=== PATIENT | male | born 1965 | race Caucasian/White ===

== ENCOUNTER 2017-06-02 08:58 | Emergency (ER) | payer MEDICAID ==
[~2017-06-02] VITALS: Ht 172.7 cm; Wt 80.0 kg
[2017-06-02] MEDS ORDERED: ONDANSETRON 2MG/ML, 2ML ONE (09:16)
[2017-06-02] MEDS ORDERED: FAMOTIDINE 20 MG/2 ML ONE (09:16)
[2017-06-02] MEDS ORDERED: MAALOX/HYOSCYAMINE/LIDOCAINE 45 ML BTL ONE (09:16)
[2017-06-02] MEDS ORDERED: MORPHINE SULFATE 4 MG/ML, 1ML ONE (09:18)
[2017-06-02] MEDS ORDERED: MORPHINE SULFATE 4 MG/ML, 1ML IVPush PRN (09:30)
[2017-06-02] MEDS ORDERED: MAALOX/HYOSCYAMINE/LIDOCAINE 45 ML BTL PO ONE (09:30)
[2017-06-02] MEDS ORDERED: FAMOTIDINE 20 MG/2 ML IVP ONE (09:30)
[2017-06-02] MEDS ORDERED: ONDANSETRON 2MG/ML, 2ML IVPush ONE (09:30)
[2017-06-02 09:36] LABS: HEMATOCRIT 53.5 % (39.2-51.8); HEMOGLOBIN 18.1 g/dL (13.7-18.0); WHITE BLOOD COUNT 13.8 x10^3/uL (3.4-10)
[2017-06-02 09:47] LABS: ASPARTATE AMINO TRANSFERASE 28 U/L (15-37); BLOOD UREA NITROGEN 11 mg/dL (7-18)
[2017-06-02] MEDS ORDERED: OMNIPAQUE 350 MG/ML, 100ML BOTTLE ONE (10:43)
[2017-06-02] MEDS ORDERED: HYDROcodone/APAP 5/325 TABLET PO ONE (11:30)
[2017-06-02] MEDS ORDERED: HYDROcodone/APAP 5/325 TABLET ONE (12:08)
[2017-06-02 12:16] VITALS: BP 170/104
== END 2017-06-02 12:18 | disposition home or self-care (01) ==
LOC: ED 09:20
DX: K29.00 Acute gastritis without bleeding (principal); I10 Essential (primary) hypertension
CPT/HCPCS: 36415; 74177; 80053; 83690; 85025; 96374; 96375; 99285; J2405; Q9967; S0028

== ENCOUNTER 2017-06-14 23:32 | Emergency (ER) | payer MEDICAID ==
[~2017-06-14] VITALS: Ht 172.7 cm; Wt 80.0 kg
[2017-06-14] MEDS ORDERED: OMEP20TA62 PO (23:44)
[2017-06-14] MEDS ORDERED: FAMOTIDINE 20 MG/2 ML ONE (23:55)
[2017-06-14] MEDS ORDERED: MAALOX/HYOSCYAMINE/LIDOCAINE 45 ML BTL ONE (23:55)
[2017-06-14 23:59] LABS: HEMOGLOBIN 17.8 g/dL (13.7-18.0); WHITE BLOOD COUNT 13.2 x10^3/uL (3.4-10)
[2017-06-15] MEDS ORDERED: SODIUM CHLORIDE FLUSH 10ML SYR IVF ONE
[2017-06-15] MEDS ORDERED: MAALOX/HYOSCYAMINE/LIDOCAINE 45 ML BTL PO ONE
[2017-06-15] MEDS ORDERED: SODIUM CHLORIDE 0.9% 1,000ML IVBOLUS ONE
[2017-06-15] MEDS ORDERED: FAMOTIDINE 20 MG/2 ML IVP ONE
[2017-06-15 00:13] LABS: ASPARTATE AMINO TRANSFERASE 25 U/L (15-37); BLOOD UREA NITROGEN 11 mg/dL (7-18)
[2017-06-15] MEDS ORDERED: morphine SULFATE 10 MG/ML, 1ML ONE ×2 (00:22→00:59)
[2017-06-15] MEDS: MORPHINE SULFATE 4 MG/ML, 1ML IVPush PRN ×2 (00:25→01:02)
[2017-06-15 00:32] LABS: PATH.CAST-FLAG NOT PRESENT; SPERM-FLAG NOT PRESENT; SRC-FLAG NOT PRESENT; XTAL-FLAG NOT PRESENT; YLC-FLAG NOT PRESENT
[2017-06-15 01:29] VITALS: BP 156/98
== END 2017-06-15 01:30 | disposition home or self-care (01) ==
LOC: ED 23:39
DX: K29.00 Acute gastritis without bleeding (principal); D72.829 Elevated white blood cell count, unspecified; I10 Essential (primary) hypertension; Z90.49 Acquired absence of other specified parts of digestive tract
CPT/HCPCS: 36415; 76700; 80053; 81003; 83690; 85025; 93005; 96361; 96374; 96375; 96376; 99285; J7030; S0028

== ENCOUNTER 2017-07-01 03:56 | Emergency (ER) | payer MEDICAID ==
[~2017-07-01] VITALS: Ht 170.2 cm; Wt 73.0 kg
[~2017-07-01 03:56] MED LIST: OMEP20TA62 PO
[2017-07-01] MEDS ORDERED: MAALOX/HYOSCYAMINE/LIDOCAINE 45 ML BTL ONE (04:11)
[2017-07-01 04:24] LABS: HEMATOCRIT 49.2 % (39.2-51.8); HEMOGLOBIN 16.8 g/dL (13.7-18.0); WHITE BLOOD COUNT 11.4 x10^3/uL (3.4-10)
[2017-07-01] MEDS ORDERED: MAALOX/HYOSCYAMINE/LIDOCAINE 45 ML BTL PO ONE (04:30)
[2017-07-01] MEDS ORDERED: ONDANSETRON ODT 4 MG PO ONE (04:30)
[2017-07-01 04:37] LABS: ASPARTATE AMINO TRANSFERASE 27 U/L (15-37); BLOOD UREA NITROGEN 20 mg/dL (7-18)
[2017-07-01 04:53] LABS: IS PT STATUS REG ER OR PRE ER? YES
[2017-07-01 05:09] VITALS: BP 163/62
== END 2017-07-01 05:14 | disposition home or self-care (01) ==
LOC: ED 05:00
DX: K21.0 Gastro-esophageal reflux disease with esophagitis (principal); I10 Essential (primary) hypertension; F17.200 Nicotine dependence, unspecified, uncomplicated
CPT/HCPCS: 36415; 80053; 80307; 83690; 84484; 85025; 93005; 99285; G0479

== ENCOUNTER 2017-08-05 06:33 | Emergency (ER) | payer MEDICAID ==
[2017-08-05] MEDS ORDERED: FAMOTIDINE 20 MG/2 ML ONE (07:25)
[2017-08-05] MEDS ORDERED: MAALOX/HYOSCYAMINE/LIDOCAINE 45 ML BTL ONE (07:25)
[2017-08-05] MEDS ORDERED: ONDANSETRON 2MG/ML, 2ML ONE (07:25)
[2017-08-05] MEDS ORDERED: ONDANSETRON 2MG/ML, 2ML IVPush ONE (07:30)
[2017-08-05] MEDS ORDERED: FAMOTIDINE 20 MG/2 ML IVP ONE (07:30)
[2017-08-05] MEDS ORDERED: MAALOX/HYOSCYAMINE/LIDOCAINE 45 ML BTL PO ONE (07:30)
[2017-08-05] MEDS ORDERED: SODIUM CHLORIDE 0.9% 1,000ML IVBOLUS ONE (07:30)
[2017-08-05 07:37] VITALS: BP 186/143
[2017-08-05 07:45] LABS: HEMATOCRIT 49.7 % (39.2-51.8); WHITE BLOOD COUNT 13.2 x10^3/uL (3.4-10)
[2017-08-05 07:55] LABS: ASPARTATE AMINO TRANSFERASE 26 U/L (15-37); BLOOD UREA NITROGEN 15 mg/dL (7-18)
[2017-08-05] MEDS ORDERED: MORPHINE SULFATE 4 MG/ML, 1ML ONE (08:39)
[2017-08-05] MEDS ORDERED: MORPHINE SULFATE 4 MG/ML, 1ML IVPush PRN (09:00)
== END 2017-08-05 09:39 | disposition home or self-care (01) ==
LOC: ED 07:03
DX: K29.00 Acute gastritis without bleeding (principal); F17.210 Nicotine dependence, cigarettes, uncomplicated; I10 Essential (primary) hypertension
CPT/HCPCS: 36415; 80053; 83690; 85025; 93005; 96361; 96374; 96375; 99285; J2405; J7030; S0028

== ENCOUNTER 2017-08-09 04:14 | Emergency (ER) | payer MEDICAID ==
[~2017-08-09] VITALS: Ht 172.7 cm; Wt 78.7 kg
[2017-08-09] MEDS ORDERED: MAALOX/HYOSCYAMINE/LIDOCAINE 45 ML BTL PO ONE (05:00)
[2017-08-09] MEDS ORDERED: FAMOTIDINE 20 MG/2 ML IVP ONE (05:00)
[2017-08-09] MEDS ORDERED: ONDANSETRON 2MG/ML, 2ML IVPush ONE (05:00)
[2017-08-09] MEDS ORDERED: SODIUM CHLORIDE FLUSH 10ML SYR IVF ONE (05:00)
[2017-08-09] MEDS ORDERED: KETOROLAC 30 MG/1 ML IVPush ONE (05:00)
[2017-08-09] MEDS ORDERED: MAALOX/HYOSCYAMINE/LIDOCAINE 45 ML BTL ONE (05:04)
[2017-08-09] MEDS ORDERED: KETOROLAC 30 MG/1 ML ONE (05:04)
[2017-08-09] MEDS ORDERED: ONDANSETRON 2MG/ML, 2ML ONE (05:04)
[2017-08-09] MEDS ORDERED: FAMOTIDINE 20 MG/2 ML ONE (05:04)
[2017-08-09 05:13] LABS: HEMATOCRIT 48.5 % (39.2-51.8); HEMOGLOBIN 16.4 g/dL (13.7-18.0); WHITE BLOOD COUNT 10.4 x10^3/uL (3.4-10)
[2017-08-09 05:21] LABS: ASPARTATE AMINO TRANSFERASE 34 U/L (15-37); BLOOD UREA NITROGEN 24 mg/dL (7-18)
[2017-08-09 05:53] LABS: IS PT STATUS REG ER OR PRE ER? YES
[2017-08-09 06:21] VITALS: BP 156/96
[2017-08-10] MEDS ORDERED: ONDA4TAB10 PO (02:48)
== END 2017-08-09 06:23 | disposition home or self-care (01) ==
LOC: ED 05:08
DX: K29.00 Acute gastritis without bleeding (principal); K80.50 Calculus of bile duct without cholangitis or cholecystitis without obstruction; I10 Essential (primary) hypertension; F17.210 Nicotine dependence, cigarettes, uncomplicated
CPT/HCPCS: 36415; 71010; 76700; 80053; 83690; 84484; 85025; 93005; 96374; 96375; 99285; J1885; J2405; S0028

== ENCOUNTER 2017-08-10 02:35 | Emergency (ER) | payer MEDICAID ==
[~2017-08-10] VITALS: Ht 172.7 cm; Wt 78.0 kg
[2017-08-10] MEDS ORDERED: ONDA4TAB10 PO (02:48)
[2017-08-10] MEDS ORDERED: SODIUM CHLORIDE 0.9% 1,000ML IVBOLUS ONE (03:30)
[2017-08-10] MEDS ORDERED: ONDANSETRON 2MG/ML, 2ML IVPush ONE (03:30)
[2017-08-10] MEDS ORDERED: MORPHINE SULFATE 4 MG/ML, 1ML ONE ×2 (03:37→04:19)
[2017-08-10] MEDS ORDERED: ONDANSETRON 2MG/ML, 2ML ONE (03:37)
[2017-08-10] MEDS: MORPHINE SULFATE 4 MG/ML, 1ML IVPush PRN ×2 (03:40→04:21)
[2017-08-10 03:52] LABS: HEMATOCRIT 48.4 % (39.2-51.8); HEMOGLOBIN 16.5 g/dL (13.7-18.0); WHITE BLOOD COUNT 9.6 x10^3/uL (3.4-10)
[2017-08-10 04:06] LABS: ASPARTATE AMINO TRANSFERASE 26 U/L (15-37); BLOOD UREA NITROGEN 20 mg/dL (7-18)
[2017-08-10 04:13] LABS: IS PT STATUS REG ER OR PRE ER? YES
[2017-08-10] MEDS ORDERED: OMNIPAQUE 350 MG/ML, 100ML BOTTLE ONE (04:48)
[2017-08-10 06:19] VITALS: BP 133/88
== END 2017-08-10 06:34 | disposition home or self-care (01) ==
LOC: ED 05:55
DX: K29.00 Acute gastritis without bleeding (principal); K80.44 Calculus of bile duct with chronic cholecystitis without obstruction; K21.9 Gastro-esophageal reflux disease without esophagitis; I10 Essential (primary) hypertension; G89.29 Other chronic pain; Z87.19 Personal history of other diseases of the digestive system
CPT/HCPCS: 36415; 74177; 76700; 80053; 80307; 81003; 83690; 84484; 85025; 96361; 96374; 96375; 96376; 99285; J2405; J7030; Q9967; G0479

== ENCOUNTER 2017-08-16 09:36 | Emergency (ER) | payer MEDICAID ==
[~2017-08-16] VITALS: Ht 172.7 cm; Wt 79.0 kg
[~2017-08-16 09:36] MED LIST changes: +ONDA4TAB10 PO
[2017-08-16] MEDS ORDERED: MAALOX/HYOSCYAMINE/LIDOCAINE 45 ML BTL PO ONE (10:00)
[2017-08-16] MEDS ORDERED: SODIUM CHLORIDE 0.9% 1,000ML IVBOLUS ONE (10:00)
[2017-08-16] MEDS ORDERED: SODIUM CHLORIDE FLUSH 10ML SYR IVF ONE (10:00)
[2017-08-16] MEDS ORDERED: ONDANSETRON 2MG/ML, 2ML IVPush ONE (10:00)
[2017-08-16] MEDS ORDERED: FAMOTIDINE 20 MG/2 ML IVP ONE (10:00)
[2017-08-16 10:17] LABS: BASOPHILS # (AUTO) 0.06 x10^3/uL (0-0.1); BASOPHILS % (AUTO) 1 % (0-1); EOSINOPHILS # (AUTO) 0.03 x10^3/uL (0-0.4); EOSINOPHILS % (AUTO) 0 % (1-7); LYMPHOCYTES # (AUTO) 1.21 x10^3/uL (1-3.4); LYMPHOCYTES % (AUTO) 13 % (22-44); MD NO; MEAN CORPUSCULAR HEMOGLOBIN 33.6 pg (27.5-34.5); MEAN CORPUSCULAR HGB CONC 33.5 g/dL (33.2-36.2); MEAN CORPUSCULAR VOLUME 100.2 fL (81-97); MEAN PLATELET VOLUME 8.2 fL (7.4-10.4); MONOCYTES # (AUTO) 0.43 x10^3/uL (0.2-0.8); MONOCYTES % (AUTO) 5 % (2-9); NEUTROPHILS # (AUTO) 7.55 x10^3/uL (1.8-6.8); NEUTROPHILS % (AUTO) 81 % (42-75); PLATELET COUNT 303 x10^3/uL (130-400); RED BLOOD COUNT 5.45 x10^6/uL (4.38-5.82); RED CELL DISTRIBUTION WIDTH 12.9 % (9.4-14.8)
[2017-08-16 10:29] LABS: ALANINE AMINOTRANSFERASE 31 U/L (12-78); ANION GAP 7 mmol/L (5-15); CHLORIDE 105 mmol/L (98-107); CREATININE 1.12 mg/dL (0.7-1.3)
[2017-08-16 10:32] LABS: ALKALINE PHOSPHATASE 92 U/L (45-117); BILIRUBIN,TOTAL 0.4 mg/dL (0.2-1.0); TOTAL PROTEIN 8.4 g/dL (6.4-8.2)
[2017-08-16] MEDS ORDERED: MAALOX/HYOSCYAMINE/LIDOCAINE 45 ML BTL ONE (10:49)
[2017-08-16] MEDS ORDERED: ONDANSETRON 2MG/ML, 2ML ONE (10:49)
[2017-08-16] MEDS ORDERED: FAMOTIDINE 20 MG/2 ML ONE (10:49)
[2017-08-16 11:58] VITALS: BP 130/86
== END 2017-08-16 12:01 | disposition home or self-care (01) ==
LOC: ED 10:01
DX: K29.70 Gastritis, unspecified, without bleeding (principal); K21.9 Gastro-esophageal reflux disease without esophagitis; I10 Essential (primary) hypertension
CPT/HCPCS: 36415; 76700; 80053; 83690; 85025; 96374; 96375; 99285; J2405; S0028

== ENCOUNTER 2017-08-31 01:17 | Emergency (ER) | payer MEDICAID ==
[~2017-08-31] VITALS: Ht 172.7 cm; Wt 76.4 kg
[2017-08-31] MEDS ORDERED: PANTOPRAZOLE 20MG TABLET ONE (01:54)
[2017-08-31] MEDS ORDERED: MAALOX/HYOSCYAMINE/LIDOCAINE 45 ML BTL ONE (01:54)
[2017-08-31] MEDS ORDERED: PANTOPRAZOLE 20MG TABLET PO ONE (02:00)
[2017-08-31] MEDS ORDERED: MAALOX/HYOSCYAMINE/LIDOCAINE 45 ML BTL PO ONE (02:00)
[2017-08-31 02:09] LABS: BASOPHILS # (AUTO) 0.04 x10^3/uL (0-0.1); BASOPHILS % (AUTO) 0 % (0-1); EOSINOPHILS # (AUTO) 0.09 x10^3/uL (0-0.4); EOSINOPHILS % (AUTO) 1 % (1-7); LYMPHOCYTES # (AUTO) 1.86 x10^3/uL (1-3.4); LYMPHOCYTES % (AUTO) 14 % (22-44); MD NO; MEAN CORPUSCULAR HEMOGLOBIN 33.2 pg (27.5-34.5); MEAN CORPUSCULAR HGB CONC 33.5 g/dL (33.2-36.2); MEAN PLATELET VOLUME 8.2 fL (7.4-10.4); MONOCYTES # (AUTO) 0.75 x10^3/uL (0.2-0.8); MONOCYTES % (AUTO) 6 % (2-9); NEUTROPHILS # (AUTO) 10.78 x10^3/uL (1.8-6.8); NEUTROPHILS % (AUTO) 80 % (42-75); PLATELET COUNT 247 x10^3/uL (130-400); RED BLOOD COUNT 5.21 x10^6/uL (4.38-5.82); RED CELL DISTRIBUTION WIDTH 12.7 % (9.4-14.8)
[2017-08-31 02:25] LABS: ALBUMIN 3.4 g/dL (3.4-5.0); ANION GAP 5 mmol/L (5-15); CALCIUM 9.2 mg/dL (8.5-10.1); CHLORIDE 108 mmol/L (98-107)
[2017-08-31 02:31] LABS: ALANINE AMINOTRANSFERASE 35 U/L (12-78); ALKALINE PHOSPHATASE 97 U/L (45-117); BILIRUBIN,TOTAL 0.2 mg/dL (0.2-1.0); CREATININE 1.04 mg/dL (0.7-1.3); TOTAL PROTEIN 7.6 g/dL (6.4-8.2); TROPONIN I < 0.015 ng/mL (0.000-0.045)
[2017-08-31 02:53] VITALS: BP 153/100
== END 2017-08-31 02:56 | disposition home or self-care (01) ==
LOC: ED 01:54
DX: K21.0 Gastro-esophageal reflux disease with esophagitis (principal); G89.29 Other chronic pain; I10 Essential (primary) hypertension; Z60.9 Problem related to social environment, unspecified; Z91.14 Patient's other noncompliance with medication regimen
CPT/HCPCS: 36415; 71045; 80053; 83690; 84484; 85025; 86677; 93005; 99285

== ENCOUNTER 2017-09-02 06:33 | Emergency (ER) | payer MEDICAID ==
[~2017-09-02] VITALS: Ht 172.7 cm; Wt 70.0 kg
[2017-09-02] MEDS ORDERED: HYDROmorphone 2 MG/ML, 1ML ONE (06:58)
[2017-09-02] MEDS ORDERED: MAALOX/HYOSCYAMINE/LIDOCAINE 45 ML BTL ONE (06:58)
[2017-09-02] MEDS ORDERED: MAALOX/HYOSCYAMINE/LIDOCAINE 45 ML BTL PO ONE (07:00)
[2017-09-02] MEDS ORDERED: HYDROmorphone 1 MG/ML, 1ML IM ONE (07:00)
[2017-09-02] MEDS ORDERED: SODIUM CHLORIDE FLUSH 10ML SYR IVF ONE (08:00)
[2017-09-02] MEDS ORDERED: ONDANSETRON 2MG/ML, 2ML IVPush ONE (08:00)
[2017-09-02] MEDS ORDERED: SODIUM CHLORIDE 0.9% 1,000ML IVBOLUS ONE (08:00)
[2017-09-02 08:13] LABS: BASOPHILS # (AUTO) 0.06 x10^3/uL (0-0.1); BASOPHILS % (AUTO) 0 % (0-1); EOSINOPHILS # (AUTO) 0.02 x10^3/uL (0-0.4); EOSINOPHILS % (AUTO) 0 % (1-7); LYMPHOCYTES # (AUTO) 1.46 x10^3/uL (1-3.4); LYMPHOCYTES % (AUTO) 11 % (22-44); MD NO; MEAN CORPUSCULAR HEMOGLOBIN 33.7 pg (27.5-34.5); MEAN CORPUSCULAR HGB CONC 33.6 g/dL (33.2-36.2); MEAN CORPUSCULAR VOLUME 100.4 fL (81-97); MEAN PLATELET VOLUME 7.8 fL (7.4-10.4); MONOCYTES # (AUTO) 0.58 x10^3/uL (0.2-0.8); MONOCYTES % (AUTO) 4 % (2-9); NEUTROPHILS # (AUTO) 11.13 x10^3/uL (1.8-6.8); NEUTROPHILS % (AUTO) 84 % (42-75); PLATELET COUNT 262 x10^3/uL (130-400); RED BLOOD COUNT 5.65 x10^6/uL (4.38-5.82); RED CELL DISTRIBUTION WIDTH 13.1 % (9.4-14.8)
[2017-09-02 08:18] LABS: INTERNATIONAL NORMALIZED RATIO 1.04 (0.93-1.1); PROTHROMBIN TIME 10.8 Seconds (9.6-11.5)
[2017-09-02] MEDS ORDERED: ONDANSETRON 2MG/ML, 2ML ONE (08:21)
[2017-09-02 08:23] LABS: ALBUMIN 3.9 g/dL (3.4-5.0); ANION GAP 4 mmol/L (5-15); CALCIUM 9.3 mg/dL (8.5-10.1); CHLORIDE 105 mmol/L (98-107)
[2017-09-02 08:26] LABS: ALANINE AMINOTRANSFERASE 50 U/L (12-78); ALKALINE PHOSPHATASE 103 U/L (45-117); BILIRUBIN,TOTAL 0.6 mg/dL (0.2-1.0); CREATININE 1.33 mg/dL (0.7-1.3); TOTAL PROTEIN 8.5 g/dL (6.4-8.2)
[2017-09-02 08:32] VITALS: BP 194/112
== END 2017-09-02 10:02 | disposition home or self-care (01) ==
LOC: ED 06:40
DX: R10.13 Epigastric pain (principal); G89.29 Other chronic pain; I10 Essential (primary) hypertension; F17.200 Nicotine dependence, unspecified, uncomplicated
CPT/HCPCS: 36415; 80053; 83605; 83690; 85025; 85610; 93005; 96361; 96372; 96374; 99285; J1170; J2405; J7030

== ENCOUNTER 2017-09-07 04:14 | Emergency (ER) | payer MEDICAID ==
[~2017-09-07] VITALS: Ht 172.7 cm; Wt 76.0 kg
[2017-09-07] MEDS ORDERED: OMEP20TA62 PO (04:21)
[2017-09-07] MEDS ORDERED: PROMETHAZINE 25 MG/ML, 1ML ONE (04:46)
[2017-09-07] MEDS ORDERED: FAMOTIDINE 20 MG/2 ML ONE (04:46)
[2017-09-07] MEDS ORDERED: KETOROLAC 30 MG/1 ML ONE (04:46)
[2017-09-07] MEDS ORDERED: KETOROLAC 30 MG/1 ML IVPush ONE (05:00)
[2017-09-07] MEDS ORDERED: SODIUM CHLORIDE 0.9% 1,000ML IVBOLUS ONE (05:00)
[2017-09-07] MEDS ORDERED: FAMOTIDINE 20 MG/2 ML IVP ONE (05:00)
[2017-09-07] MEDS ORDERED: PROMETHAZINE 25 MG/ML, 1ML IM ONE (05:00)
[2017-09-07] MEDS ORDERED: SODIUM CHLORIDE FLUSH 10ML SYR IVF ONE (05:00)
[2017-09-07 05:14] LABS: BASOPHILS # (AUTO) 0.07 x10^3/uL (0-0.1); BASOPHILS % (AUTO) 1 % (0-1); EOSINOPHILS # (AUTO) 0.01 x10^3/uL (0-0.4); EOSINOPHILS % (AUTO) 0 % (1-7); LYMPHOCYTES % (AUTO) 17 % (22-44); MD NO; MEAN CORPUSCULAR HEMOGLOBIN 33.7 pg (27.5-34.5); MEAN CORPUSCULAR HGB CONC 34.1 g/dL (33.2-36.2); MEAN CORPUSCULAR VOLUME 98.7 fL (81-97); MEAN PLATELET VOLUME 8.2 fL (7.4-10.4); MONOCYTES # (AUTO) 0.69 x10^3/uL (0.2-0.8); MONOCYTES % (AUTO) 6 % (2-9); NEUTROPHILS # (AUTO) 8.38 x10^3/uL (1.8-6.8); NEUTROPHILS % (AUTO) 76 % (42-75); PLATELET COUNT 276 x10^3/uL (130-400); RED BLOOD COUNT 5.09 x10^6/uL (4.38-5.82); RED CELL DISTRIBUTION WIDTH 12.6 % (9.4-14.8)
[2017-09-07 05:27] LABS: ALANINE AMINOTRANSFERASE 46 U/L (12-78); ALBUMIN 4.1 g/dL (3.4-5.0); ANION GAP 9 mmol/L (5-15); CALCIUM 9.4 mg/dL (8.5-10.1); CHLORIDE 101 mmol/L (98-107); CREATININE 1.16 mg/dL (0.7-1.3)
[2017-09-07 05:29] LABS: ALKALINE PHOSPHATASE 100 U/L (45-117); BILIRUBIN,TOTAL 0.8 mg/dL (0.2-1.0); TOTAL PROTEIN 8.5 g/dL (6.4-8.2)
[2017-09-07] MEDS ORDERED: MAALOX/HYOSCYAMINE/LIDOCAINE 45 ML BTL ONE (05:47)
[2017-09-07] MEDS ORDERED: MAALOX/HYOSCYAMINE/LIDOCAINE 45 ML BTL PO ONE (06:00)
[2017-09-07 06:33] LABS: TROPONIN I < 0.015 ng/mL (0.000-0.045)
[2017-09-07 07:12] VITALS: BP 124/73
== END 2017-09-07 07:14 | disposition home or self-care (01) ==
LOC: ED 05:25
DX: G89.29 Other chronic pain (principal); R10.11 Right upper quadrant pain; K21.9 Gastro-esophageal reflux disease without esophagitis; I10 Essential (primary) hypertension; F17.210 Nicotine dependence, cigarettes, uncomplicated
CPT/HCPCS: 36415; 76700; 80053; 83690; 84484; 85025; 93005; 96361; 96372; 96374; 96375; 99285; J1885; J2550; J7030; S0028

== ENCOUNTER 2017-09-09 04:56 | Inpatient (IN) | payer MEDICAID ==
[~2017-09-09] VITALS: Ht 172.7 cm; Wt 74.1 kg
[2017-09-09] MEDS ORDERED: SODIUM CHLORIDE 0.9% 1,000ML IVBOLUS ONE (06:00)
[2017-09-09] MEDS ORDERED: DIPHENHYDRAMINE 50 MG/ML, 1ML IVPush ONE (06:00)
[2017-09-09] MEDS ORDERED: METOCLOPRAMIDE 5 MG/ML, 2ML IVPush ONE (06:00)
[2017-09-09] MEDS ORDERED: SODIUM CHLORIDE FLUSH 10ML SYR IVF ONE (06:00)
[2017-09-09] MEDS ORDERED: DIPHENHYDRAMINE 50 MG/ML, 1ML ONE (06:06)
[2017-09-09] MEDS ORDERED: METOCLOPRAMIDE 5 MG/ML, 2ML ONE (06:06)
[2017-09-09 06:13] LABS: BASOPHILS # (AUTO) 0.02 x10^3/uL (0-0.1); BASOPHILS % (AUTO) 0 % (0-1); EOSINOPHILS # (AUTO) 0.03 x10^3/uL (0-0.4); EOSINOPHILS % (AUTO) 0 % (1-7); LYMPHOCYTES # (AUTO) 1.01 x10^3/uL (1-3.4); LYMPHOCYTES % (AUTO) 10 % (22-44); MD NO; MEAN CORPUSCULAR HEMOGLOBIN 33.5 pg (27.5-34.5); MEAN CORPUSCULAR HGB CONC 33.6 g/dL (33.2-36.2); MEAN CORPUSCULAR VOLUME 99.8 fL (81-97); MEAN PLATELET VOLUME 7.9 fL (7.4-10.4); MONOCYTES # (AUTO) 0.58 x10^3/uL (0.2-0.8); MONOCYTES % (AUTO) 6 % (2-9); NEUTROPHILS # (AUTO) 8.44 x10^3/uL (1.8-6.8); NEUTROPHILS % (AUTO) 84 % (42-75); PLATELET COUNT 300 x10^3/uL (130-400); RED BLOOD COUNT 4.87 x10^6/uL (4.38-5.82); RED CELL DISTRIBUTION WIDTH 12.6 % (9.4-14.8)
[2017-09-09 06:25] LABS: ALANINE AMINOTRANSFERASE 39 U/L (12-78); ALBUMIN 3.8 g/dL (3.4-5.0); ANION GAP 8 mmol/L (5-15); CALCIUM 8.9 mg/dL (8.5-10.1); CHLORIDE 104 mmol/L (98-107); CREATININE 1.15 mg/dL (0.7-1.3)
[2017-09-09 06:27] LABS: ALKALINE PHOSPHATASE 94 U/L (45-117); BILIRUBIN,TOTAL 0.5 mg/dL (0.2-1.0)
[2017-09-09] MEDS ORDERED: ACETAMINOPHEN 650 MG SUPP PR PRN (11:00)
[2017-09-09] MEDS ORDERED: KETOROLAC 30 MG/1 ML IVPush PRN (11:00)
[2017-09-09] MEDS ORDERED: ONDANSETRON 2MG/ML, 2ML IVPush PRN ×3 (11:00→18:00)
[2017-09-09 11:26] VITALS: BP 198/71
[2017-09-09 11:45] VITALS: BP 166/89
[2017-09-09 12:50] VITALS: BP 154/86
[2017-09-09 14:41] VITALS: BP 148/81
[2017-09-09] MEDS ORDERED: ENALAPRILAT 1.25 MG/ML, 2ML IV PRN (16:00)
[2017-09-09] MEDS ORDERED: morphine SULFATE 10 MG/ML, 1ML IVPush PRN (16:00)
[2017-09-09] MEDS ORDERED: D5%-LACTATED RINGERS 1,000 ML IV SCH (16:00)
[2017-09-09] MEDS ORDERED: MIDAZOLAM 1 MG/ML, 2ML ONE (17:37)
[2017-09-09] MEDS ORDERED: FENTANYL PF 250 MCG/5ML ONE (17:38)
[2017-09-09] MEDS ORDERED: PROPOFOL 10 MG/ML, 20ML ONE (17:38)
[2017-09-09] MEDS ORDERED: ROCURONIUM 10 MG/ML,10ML ONE (17:38)
[2017-09-09] MEDS ORDERED: LIDOCAINE-MPF 2% ,5ML ONE (17:38)
[2017-09-09] MEDS ORDERED: DEXAMETHASONE 4 MG/ML, 1ML ONE ×2 (17:43)
[2017-09-09] MEDS ORDERED: ONDANSETRON 2MG/ML, 2ML ONE ×2 (17:43)
[2017-09-09] MEDS ORDERED: KETOROLAC 30 MG/1 ML ONE (17:43)
[2017-09-09] MEDS ORDERED: hydrALAzine 20 MG/ML, 1ML IV PRN (18:00)
[2017-09-09] MEDS ORDERED: OXYcodone 5 MG/5 ML ORAL.SOL UDC PO PRN (18:00)
[2017-09-09] MEDS ORDERED: PROMETHAZINE 25 MG/ML, 1ML IV PRN (18:00)
[2017-09-09] MEDS ORDERED: HYDROmorphone 1 MG/ML, 1ML IV PRN (18:00)
[2017-09-09] MEDS ORDERED: ACETAMINOPHEN 325 MG TABLET PO PRN (18:00)
[2017-09-09] MEDS ORDERED: LORazepam 2 MG/ML, 1ML IVPush PRN (18:00)
[2017-09-09] MEDS ORDERED: FENTANYL PF 100 MCG/2ML IV PRN (18:00)
[2017-09-09] MEDS ORDERED: MEPERIDINE/PF 25MG/0.5ML IVPush PRN (18:00)
[2017-09-09] MEDS ORDERED: LABETALOL 5MG/ML, 20ML IV PRN (18:00)
[2017-09-09] MEDS ORDERED: BUPIVACAINE/PF 0.5% ONE (18:04)
[2017-09-09] MEDS ORDERED: EPINEPHRINE 1 MG/ML, 1ML ONE (18:04)
[2017-09-09] MEDS ORDERED: BUPIVACAINE/PF-EPI 0.5% 1:200K IM ONE (18:27)
[2017-09-09] MEDS ORDERED: CEFOTETAN 2 GM ONE (19:13)
[2017-09-09] MEDS ORDERED: OXYcodone 5 MG/5 ML ORAL.SOL UDC ONE (21:00)
[2017-09-09] MEDS ORDERED: ACETAMINOPHEN 650 MG/20.3 ML UDC ONE (21:00)
[2017-09-09] MEDS: FAMOTIDINE 20 MG/2 ML IVPush SCH (21:49)
[2017-09-09 21:59] VITALS: BP 125/84
[2017-09-09] MEDS ORDERED: MORPHINE SULFATE 4 MG/ML, 1ML IVPush PRN (23:45)
[2017-09-10] VITALS: BP 115/72
[2017-09-10] MEDS: D5%-0.45NACL+KCL 20MEQ 1,000 ML IV SCH ×2 (01:03→08:51)
[2017-09-10 04:00] VITALS: BP 127/76
[2017-09-10 05:51] LABS: CHLORIDE 105 mmol/L (98-107)
[2017-09-10 06:04] LABS: ALANINE AMINOTRANSFERASE 58 U/L (12-78); ALBUMIN 3.1 g/dL (3.4-5.0); ALKALINE PHOSPHATASE 74 U/L (45-117); ANION GAP 7 mmol/L (5-15); BILIRUBIN,TOTAL 1.1 mg/dL (0.2-1.0); CALCIUM 8.4 mg/dL (8.5-10.1); CREATININE 1.35 mg/dL (0.7-1.3); TOTAL PROTEIN 6.8 g/dL (6.4-8.2)
[2017-09-10 06:15] LABS: BASOPHILS % (AUTO) 0 % (0-1); EOSINOPHILS % (AUTO) 0 % (1-7); LYMPHOCYTES # (AUTO) 0.64 x10^3/uL (1-3.4); LYMPHOCYTES % (AUTO) 6 % (22-44); MD NO; MEAN CORPUSCULAR HEMOGLOBIN 33.7 pg (27.5-34.5); MEAN CORPUSCULAR HGB CONC 33.7 g/dL (33.2-36.2); MEAN PLATELET VOLUME 8.3 fL (7.4-10.4); MONOCYTES # (AUTO) 0.44 x10^3/uL (0.2-0.8); MONOCYTES % (AUTO) 4 % (2-9); NEUTROPHILS # (AUTO) 10.74 x10^3/uL (1.8-6.8); NEUTROPHILS % (AUTO) 91 % (42-75); PLATELET COUNT 240 x10^3/uL (130-400); RED BLOOD COUNT 4.45 x10^6/uL (4.38-5.82); RED CELL DISTRIBUTION WIDTH 12.6 % (9.4-14.8)
[2017-09-10 07:11] VITALS: BP 142/72
[2017-09-10] MEDS: FAMOTIDINE 20 MG/2 ML IVPush SCH (10:52)
[2017-09-10 12:38] VITALS: BP 161/99
== END 2017-09-10 13:30 | disposition home or self-care (01) | DRG 419 ==
LOC: ED 08:13 → EDIP 10:15 → 4NOR 10:54 → OBSVTOIN 09-10 06:18
PROVIDERS: ADMIT Internal Medicine; ATTEND Internal Medicine
PROC: 0FT44ZZ Resection of Gallbladder, Percutaneous Endoscopic Approach (ICD-10-PCS; principal; 2017-09-09 19:15)
DX: K80.10 Calculus of gallbladder with chronic cholecystitis without obstruction (principal); K66.8 Other specified disorders of peritoneum; F12.90 Cannabis use, unspecified, uncomplicated; F15.90 Other stimulant use, unspecified, uncomplicated; F17.210 Nicotine dependence, cigarettes, uncomplicated; I10 Essential (primary) hypertension; K21.9 Gastro-esophageal reflux disease without esophagitis; K27.9 Peptic ulcer, site unspecified, unspecified as acute or chronic, without hemorrhage or perforation; Z82.49 Family history of ischemic heart disease and other diseases of the circulatory system; Z87.11 Personal history of peptic ulcer disease
CPT/HCPCS: 36415; 78226; 80053; 83690; 85025; 88304; 93005; 96374; 96375; G0378; J0171; J1100; J1885; J2250; J2405; J2704; J3010; J3490; A9537; C9898; J1200; J2765; J3480; J7030; S0028; S0074

== ENCOUNTER 2020-07-06 12:47 | Emergency (ER) | payer MEDICAID ==
[~2020-07-06] VITALS: Ht 172.7 cm; Wt 80.0 kg
[2020-07-06] MEDS ORDERED: KETOROLAC 30 MG/1 ML IVPush ONE (13:30)
[2020-07-06] MEDS ORDERED: DIAZEPAM 5 MG/ML, 2ML IV ONE (13:30)
[2020-07-06] MEDS ORDERED: SODIUM CHLORIDE FLUSH 10ML SYR IVF ONE (13:30)
[2020-07-06 13:31] LABS: BASOPHILS % (AUTO) 1 % (0-1); EOSINOPHILS % (AUTO) 0 % (1-7); LYMPHOCYTES % (AUTO) 8 % (22-44); MEAN CORPUSCULAR HEMOGLOBIN 34.5 pg (27.5-34.5); MEAN CORPUSCULAR HGB CONC 34.5 g/dL (33.2-36.2); MEAN PLATELET VOLUME 7.8 fL (7.4-10.4); MONOCYTES % (AUTO) 9 % (2-9); NEUTROPHILS % (AUTO) 83 % (42-75); PLATELET COUNT 275 x10^3/uL (130-400); RED BLOOD COUNT 5.21 x10^6/uL (4.38-5.82); RED CELL DISTRIBUTION WIDTH 12.5 % (9.4-14.8)
[2020-07-06 13:36] LABS: HCT (SEDRATE) 52.1 % (39.2-51.8)
[2020-07-06 13:38] LABS: ALBUMIN 3.8 g/dL (3.4-5.0); ANION GAP 4 mmol/L (5-15); CALCIUM 9.2 mg/dL (8.5-10.1); CHLORIDE 107 mmol/L (98-107); CREATININE 1.32 mg/dL (0.7-1.3)
[2020-07-06] MEDS ORDERED: KETOROLAC 30 MG/1 ML ONE (13:38)
[2020-07-06] MEDS ORDERED: DIAZEPAM 5 MG/ML, 2ML ONE (13:38)
[2020-07-06 13:47] LABS: MD SCAN
[2020-07-06 15:09] VITALS: BP 169/111
--- NOTE | 2020-07-06 15:10 | NUR ---
PT RESTING IN [facility], NO NEEDS AT THIS TIME.
[2020-07-06] MEDS ORDERED: GADOTERATE 10 MMOL/20 ML SYR ONE (16:46)
== END 2020-07-06 19:32 | disposition home or self-care (01) ==
LOC: ED 12:55
DX: M47.812 Spondylosis without myelopathy or radiculopathy, cervical region (principal); I10 Essential (primary) hypertension
CPT/HCPCS: 36415; 72156; 80048; 82040; 85025; 85651; 86140; 96374; 96375; 99285; A9575; J1885; J3360